=== PATIENT | female | born 1950 | race Caucasian/White ===

== ENCOUNTER → 2016-12-28 | Outpatient (CLI) | payer MEDICARE, OTHER ==
[~2016-12-28] MED LIST: ASPI-586 PO; CELE200C PO; CITA40TA11 PO; GABA600T2 PO; INSU100V31 IJ; INSU100V5 SQ; MELO15TA39 PO; METF1000 PO; MULT1TAB69 PO; ONDN4T PO; OXYC-471 PO; PANT40TA2 PO; PRAV40TA2 PO; ROPI0.25 PO; ROPI5TAB PO; SUCR1TAB36 PO; TOLTA4 PO
== END ==
LOC: PREOP 12:57
PROVIDERS: ATTEND Surgery
DX: Z01.818 Encounter for other preprocedural examination (principal); K21.9 Gastro-esophageal reflux disease without esophagitis; R11.2 Nausea with vomiting, unspecified; R10.9 Unspecified abdominal pain

== ENCOUNTER 2016-12-29 09:17 | Day surgery (SDC) | payer MEDICARE, OTHER ==
[~2016-12-29] VITALS: Ht 160 cm; Wt 85.7 kg
[~2016-12-29 09:17] MED LIST changes: -MELO15TA39 PO; -SUCR1TAB36 PO
[2016-12-29 09:30] VITALS: BP 105/57
[2016-12-29] MEDS ORDERED: LIDOCAINE JELLY 2% (XYLOCAINE) 5 ML TUBE MM PRN (09:45)
[2016-12-29] MEDS ORDERED: NS IV 500 ML 500 ML IV PRN (09:45)
[2016-12-29] MEDS ORDERED: HURRICAINE EXT TUBE (BENZOCAINE) XX PRN (09:45)
[2016-12-29] MEDS ORDERED: MELO15TA39 PO (10:09)
[2016-12-29] MEDS ORDERED: METF1000 PO (10:09)
--- NOTE | 2016-12-29 10:15 | Conscious Sedation/ASA ---
Conscious Sedation Pre-Proced Time Reviewed: 09:45 ASA Class: 2 Airway Mallampati Classification: ([place] appropriate class) I. II. III, IV Lungs Heart ASA score ASA 1: a normal healthy patient ASA 2: a patient with a mild systemic disease (mid diabetes, controlled hypertension, obesity ASA 3: a patient with a severe systemic disease that limits activity (angina , COPD, prior Myocardial infarction) ASA 4: a patient with an incapacitating disease that is a constant threat to life (CHF, renal failure) ASA 5: a moribund patient not expected to survive 24 hrs. (ruptured aneurysm) ASA 6: a declared brain patient whose organs are being harvested. For emergent operations, add the letter E after the classification Grade 3 Sedation Plan: Analgesia, Amnesia, Plan communicated to team members, Discussed options with patient/fam, Discussed risks with patient/fam Note The patient is an appropriate candidate to undergo the planned procedure, sedation, and anesthesia. The patient immediately re-assessed prior to indication. TIFF LAMBERT MD Dec 29, 2016 10:15
--- NOTE | 2016-12-29 10:16 | Progress Note-Pre Operative ---
Pre-Operative Progress Note H&P Reviewed The H&P was reviewed, patient examined and no changes noted. Date Seen by Provider: Dec 29, 2016 Time Seen by Provider: 09:45 Date H&P Reviewed: Dec 29, 2016 Time H&P Reviewed: 09:45 Pre-Operative Diagnosis: nausea, vomiting, GERD TIFF LAMBERT MD Dec 29, 2016 10:16
[2016-12-29] MEDS ORDERED: ONDANSETRON 4 MG/2 ML (SDV) Z0FRAN IV PRN (10:30)
[2016-12-29] MEDS ORDERED: ACETAMINOPHEN 325 MG TABLET/CAPLET (TYLENOL) PO PRN (10:30)
[2016-12-29] MEDS ORDERED: HYDROcodone/APAP 5 MG/325 MG (LORTAB) TAB PO PRN (10:30)
[2016-12-29] MEDS ORDERED: morphine INJ 10 MG/ML 1ML (SYR OR VIAL) IV PRN (10:30)
[2016-12-29] MEDS ORDERED: LIDOCAINE JELLY 2% (XYLOCAINE) 5 ML TUBE ONE (10:50)
[2016-12-29] MEDS ORDERED: HURRICAINE EXT TUBE (BENZOCAINE) ONE (10:51)
[2016-12-29] MEDS ORDERED: fentaNYL INJECTION 100 MCG/2 ML AMP ONE (10:51)
[2016-12-29] MEDS ORDERED: MIDAZOLAM 2 MG/2 ML (VERSED) VIAL ONE ×3 (10:51)
[2016-12-29] MEDS: fentaNYL INJECTION 100 MCG/2 ML AMP IVP PRN ×2 (11:00→11:23)
[2016-12-29] MEDS: MIDAZOLAM 2 MG/2 ML (VERSED) VIAL IVP PRN ×3 (11:22→11:28)
--- NOTE | 2016-12-29 12:12 | Progress Note-Post Operative ---
Post-Operative Progess Note Surgeon (s)/Heat Treater (s) Surgeon TIFF LAMBERT MD Heat Treater: none Pre-Operative Diagnosis nausea, vomiting, GERD Post-Operative Diagnosis reflux esophagitis(class B), moderate-severe gastritis, mild mid-gastric pouch stricture. Procedure & Operative Findings Date of Procedure 12/29/16 Procedure Performed/Findings EGD with bx and dilatation Anesthesia Type CS Estimated Blood Loss Estimated blood loss (mL): minimal Specimens/Packing Specimens Removed antrum, GE jxn TIFF LAMBERT MD Dec 29, 2016 12:12 pm
[2016-12-29] MEDS ORDERED: SUCR1TAB36 PO (12:14)
[2016-12-29] MEDS ORDERED: PANT40TA2 PO (12:14)
--- NOTE | 2016-12-29 12:15 | Discharge Inst-Surgical ---
D/C Lap Instructions-KIDO New, Converted, or Re-Newed RX: RX on Chart Follow Up PRN Activity as tolerated High Fiber Diet 25g or more per day Avoid Alcohol, Caffeine, Spicy [place] and Acid foods. Drink 64 fluid oz or more of fluids per day. Symptoms to Report: Fever over 101 degree F, Nausea/Vomiting If any problems/questions: Contact your physician or go to Emergency Room TIFF LAMBERT MD Dec 29, 2016 12:15 pm
[2016-12-29 12:20] VITALS: BP 116/58
[2016-12-29 12:55] VITALS: BP 119/66
[2016-12-29 13:00] VITALS: BP 119/66
--- NOTE | 2016-12-29 15:49 | OPERATIVE REPORT ---
PROCEDURE PHYSICIAN: TIFF LAMBERT DATE OF PROCEDURE: 12/29/2016 ATTENDING PRIMARY CARE PHYSICIAN: Dr. Sheets. PREOPERATIVE DIAGNOSES: 1. Nausea. 2. Vomiting. 3. Gastroesophageal reflux disease. POSTOPERATIVE DIAGNOSES: 1. Reflux esophagitis, class B. 2. Moderate diffuse gastritis. 3. Mild mid gastric stricture. PROCEDURE: EGD with biopsy and dilatation. SURGEON: Dr. Lambert. ANESTHESIA: Conscious sedation. ESTIMATED BLOOD LOSS: Minimal. FINDINGS: 1. Reflux esophagitis, class B. 2. There was a diffuse gastritis throughout the gastric pouch, most likely secondary to nonsteroidal anti-inflammatories, as well as a stress gastritis. There was also a mild mid gastric pouch stricture. There were no distal obstructions with a widely patent pylorus and duodenum. DISPOSITION: The patient tolerated the procedure well. Ms. Gisela Sibley is a 66-year-old female with a history of morbid obesity, medical comorbidities including diabetes, degenerative joint disease and hyperlipidemia. She is status post laparoscopic gastric sleeve resection on 08/21/2015. She has done well with weight loss; however, has had developed issues with reflux, regurgitation, as well as gastroesophageal reflux disease. She also does report intermittent episodes of epigastric burning sensation as well as crampy pain. She does currently take meloxicam as well as aspirin for degenerative joint disease. She does not report any known hematemesis nor coffee-ground emesis. The patient was brought to endoscopy suite, laid in the left lateral decubitus position. After adequate IV pain and sedative medications and conscious sedation anesthesia, the mouthpiece was applied. The endoscope was placed in the mouth, visualizing the pharynx and hypopharyngeal region. Vocal cords, epiglottis and vallecula identified and appeared to be normal. The endoscope was then gently intubated into the esophageal opening and the esophagus insufflated. The endoscope was then advanced through the first, second, and 3rd portions esophagus. At the level of the GE junction, a reflux esophagitis, class B identified. There were no ulcers or strictures identified in this region. A biopsy was taken with forceps with visualization of good hemostasis. The endoscope was then easily advanced into the stomach visualizing the gastric pouch. There was a moderate to severe diffuse gastritis identified throughout the entirety of the stomach most likely secondary to nonsteroidal anti-inflammatory use, as well as stress gastritis. There were no formal ulcers or neoplasms identified. A mid gastric pouch stricture was also identified. The endoscope was able to pass through the stricture into the pylorus into the first and second portions of the duodenum with no distal obstructions identified. A biopsy was taken of the stomach antrum with forceps with visualization of good hemostasis. It was then decided to proceed with dilatation of the mild stricture using CRE fixed guidewire balloon. This was placed into the antrum and pulled back to the area of stricture. We first proceed to 3 atmospheres of pressure or 18 mm in diameter with no resistance. We then proceeded to 4.5 atmospheres of pressure with no resistance. We then proceeded to 6 atmospheres of pressure or 20 mm in diameter with mild resistance and left this in place for approximately 60 seconds. The balloon was desufflated and removed. There are no mucosal tears or any bleeding identified. The endoscope was then slowly withdrawn while taking a second look and suctioning of residual air with no additional findings. The patient tolerated the procedure well. We will have her proceed with the necessary lifestyle and diet accommodation including continued small frequent meals, as well as a high protein diet with lean meat protein sources and copious amounts of water and avoidance of caffeinated beverages, spicy, greasy and acidic foods. We will also recommend cessation or decreasing the amount of nonsteroidal anti-inflammatories. She also needs to be on a PPI acid customer supply chain analyst on a daily basis, which we will start as well as Carafate 1 gram q.i.d. for the next 2 weeks then on a p.r.n. basis. Job ID: [id number] Dictated Date: 12/29/2016 12:11:18 Litigation Assistant Date: 12/29/2016 15:36:50 / oskar
== END 2016-12-29 13:00 | disposition home or self-care (01) ==
LOC: ENDO 09:17
PROVIDERS: ATTEND Surgery
DX: K21.0 Gastro-esophageal reflux disease with esophagitis (principal); K29.70 Gastritis, unspecified, without bleeding; K22.2 Esophageal obstruction; E11.9 Type 2 diabetes mellitus without complications; M19.90 Unspecified osteoarthritis, unspecified site; F32.9 Major depressive disorder, single episode, unspecified; E78.5 Hyperlipidemia, unspecified; N32.81 Overactive bladder; G25.81 Restless legs syndrome; G62.9 Polyneuropathy, unspecified; Z96.652 Presence of left artificial knee joint; Z96.641 Presence of right artificial hip joint; Z96.642 Presence of left artificial hip joint; Z98.84 Bariatric surgery status; Z79.82 Long term (current) use of aspirin; Z79.899 Other long term (current) drug therapy
CPT/HCPCS: 88305

== ENCOUNTER 2019-12-12 11:34 | Outpatient (RCR) | payer MEDICARE, OTHER ==
[~2019-12-12] VITALS: Ht 160 cm; Wt 104.5 kg
[~2019-12-12 11:34] MED LIST changes: -GABA600T2 PO; +GBPN600T PO; +MELO15TA39 PO; +METF-399 PO; -METF1000 PO; +MULT-567 PO; -MULT1TAB69 PO; -ROPI0.25 PO; +ROPI0.253 PO; -ROPI5TAB PO; +ROPI5TAB3 PO; +SUCR1TAB36 PO
[2019-12-12] MEDS ORDERED: NAPR500T8 PO (12:11)
[2019-12-14] MEDS ORDERED: PANT40TA2 PO (12:30)
== END 2019-12-12 12:20 | disposition home or self-care (01) ==
LOC: PREOP 11:34
PROVIDERS: ATTEND Surgery
DX: Z01.818 Encounter for other preprocedural examination (principal)

== ENCOUNTER 2019-12-14 11:42 | Day surgery (SDC) | payer MEDICARE ==
--- NOTE | 2019-12-13 06:49 | HISTORY AND PHYSICAL ---
DATE OF SERVICE: ADMITTING PRIMARY CARE PHYSICIAN: Dr. Sheets. HISTORY OF PRESENT ILLNESS: The patient is a 69-year-old female known to us. She has a history of morbid obesity and medical comorbidities including diabetes, degenerative joint disease, depression and hyperlipidemia. She is status post laparoscopic gastric sleeve resection on 08/21/2015. She has done well with weight loss; however, she did develop persistent nausea and vomiting and underwent an EGD on 01/17/2017 and found to have a mild mid gastric stricture. She continued to do well with weight loss and her lowest was at 190 pounds and a starting weight of 314 pounds. On today's office visit, she appears well. However, states that she has had recurrent episodes of dysphagia and is only able to take in small amounts of solid foods. Because of this, she circumvents her proper diet with soft foods that do go down more easily and has gained some weight back. She reports worsening episodes of reflux and regurgitation as well, likely consistent with a recurrent stricture. PAST MEDICAL HISTORY: Diabetes, degenerative joint disease, depression, hyperlipidemia, restless leg syndrome and neuropathy. PAST SURGICAL HISTORY: Right total hip replacement 2013, left total knee 2014, total hysterectomy 2005, open cholecystectomy, bilateral carpal tunnel release 2014, laparoscopic gastric sleeve resection 07/2015. ALLERGIES: No known drug allergies. MEDICATIONS: Metformin 1000 mg b.i.d., paroxetine 30 mg daily, Protonix 40 mg daily, potassium 20 mEq daily, furosemide 40 mg daily, gabapentin 600 mg t.i.d., aspirin 81 mg daily, pravastatin 40 mg daily, montelukast 10 mg daily, donepezil 10 mg daily. SOCIAL HISTORY: Negative smoke, negative alcohol. FAMILY HISTORY: Mother, myocardial infarction in her 80s. Father, sister and brother, type 2 diabetes. VITAL SIGNS: Stable. Blood pressure 130/70, current weight 238.2 pounds at 5 feet 30 inches. REVIEW OF SYSTEMS: Well-nourished female currently in no acute distress. She is not experiencing any shortness of breath or difficulty breathing. No chest pain, palpitations or diaphoresis. Intermittent episodes of dysphagia with difficulty swallowing with only very small amounts of solid food as well as reflux and regurgitation. No hematemesis, no coffee ground emesis. No diarrhea or constipation. No red blood per rectum, no dark tarry stools. No fever or chills. No recent inadvertent weight loss. All other review of systems negative. PHYSICAL EXAMINATION: CHEST: Clear. Good breath sounds bilaterally. HEART: Regular, no murmurs. EXTREMITIES: No lower extremity edema, negative Homans sign. HEENT: No scleral icterus. NECK: No cervical lymphadenopathy. ABDOMEN: Soft, nontender, nondistended. All incisions healed well with no hernias. SKIN: Warm, dry. ASSESSMENT AND PLAN: A 69-year-old female with dysphagia likely secondary to gastric stricture, status post gastric sleeve resection. We will proceed with an EGD with biopsy as well as possible balloon dilatation. Job ID: [id number] DocumentID: [id number] Dictated Date: 12/11/2019 15:59:31 Shape Brick Molder Date: 12/11/2019 16:23:45 Dictated By: TIFF LAMBERT MD
[2019-12-14] VITALS (8 sets, daily range): BP systolic 116–182; BP diastolic 55–83
[~2019-12-14] VITALS: Ht 160 cm; Wt 104.5 kg
[~2019-12-14 11:42] MED LIST changes: +NAPR500T8 PO
[2019-12-14] MEDS ORDERED: NS IV 500 ML 500 ML IV PRN (11:55)
[2019-12-14] MEDS ORDERED: NS IV 500 ML 500 ML ONE (11:58)
[2019-12-14] MEDS ORDERED: LIDOCAINE JELLY 2% 6 ML SYRINGE MM PRN (12:00)
[2019-12-14] MEDS ORDERED: fentaNYL INJECTION 100 MCG/2 ML AMP IVP ONE (12:00)
[2019-12-14] MEDS ORDERED: HURRICAINE EXT TUBE (BENZOCAINE) XX PRN (12:00)
[2019-12-14] MEDS ORDERED: LIDOCAINE JELLY 2% 6 ML SYRINGE ONE (12:20)
[2019-12-14] MEDS ORDERED: MIDAZOLAM 5 MG/5 ML (VERSED) VIAL ONE (12:20)
[2019-12-14] MEDS ORDERED: fentaNYL INJECTION 100 MCG/2 ML AMP ONE (12:21)
--- NOTE | 2019-12-14 12:28 | Conscious Sedation/ASA ---
Conscious Sedation Pre-Proced Time 12:20 ASA Score 2 For ASA 3 and 4: Consider anesthesia and medical clearance. Also, for patients with a history of failed moderate sedation consider anesthesia. Airway Lungs Heart ASA score ASA 1: a normal healthy patient ASA 2: a patient with a mild systemic disease (mid diabetes, controlled hypertension, obesity ASA 3: a patient with a severe systemic disease that limits activity (angina, COPD, prior Myocardial infarction) ASA 4: a patient with an incapacitating disease that is a constant threat to life (CHF, renal failure) ASA 5: a moribund patient not expected to survive 24 hrs. (ruptured aneurysm) ASA 6: a declared brain- patient whose organs are being harvested. For emergent operations, add the letter E after the classification Mallampati Classification Grade 2 Sedation Plan Analgesia, Amnesia, Plan communicated to team members, Discussed options with patient/fam, Discussed risks with patient/fam The patient is an appropriate candidate to undergo the planned procedure, sedation, and anesthesia. The patient immediately re-assessed prior to indication. TIFF LAMBERT MD Dec 14, 2019 12:28
--- NOTE | 2019-12-14 12:28 | Progress Note-Pre Operative ---
Pre-Operative Progress Note H&P Reviewed The H&P was reviewed, patient examined and no changes noted. Date Seen by Provider: Dec 14, 2019 Time Seen by Provider: 12:20 Date H&P Reviewed: Dec 14, 2019 Time H&P Reviewed: 12:20 Pre-Operative Diagnosis: dysphagia TIFF LAMBERT MD Dec 14, 2019 12:28
[2019-12-14] MEDS ORDERED: ONDANSETRON 4 MG/2 ML (SDV) Z0FRAN IVP PRN (12:30)
[2019-12-14] MEDS ORDERED: HYDROcodone/APAP 5 MG/325 MG (LORTAB) TAB PO PRN (12:30)
[2019-12-14] MEDS ORDERED: ACETAMINOPHEN 325 MG TABLET PO PRN (12:30)
[2019-12-14] MEDS ORDERED: morphine INJ 10 MG/ML 1ML (SYR OR VIAL) IVP PRN ×2 (12:30)
[2019-12-14] MEDS ORDERED: PANT40TA2 PO (12:30)
--- NOTE | 2019-12-14 12:31 | Discharge Inst-Surgical ---
D/C Lap Instructions-FAUSTO New, Converted, or Re-Newed RX: RX on Chart Follow Up Activity as tolerated High Fiber Diet 25g or more per day Avoid Alcohol, Caffeine, Spicy [place] and Acid foods. Drink 64 fluid oz or more of fluids per day. Symptoms to Report: Fever over 101 degree F, Nausea/Vomiting If any problems/questions: Contact your physician or go to Emergency Room TIFF LAMBERT MD Dec 14, 2019 12:31
[2019-12-14] MEDS: MIDAZOLAM 5 MG/5 ML (VERSED) VIAL IV PRN ×2 (12:35→12:40)
--- NOTE | 2019-12-14 13:05 | Progress Note-Post Operative ---
Post-Operative Progess Note Surgeon (s)/Restaurant Recruiter (s) Surgeon TIFF LAMBERT MD Restaurant Recruiter: none Pre-Operative Diagnosis dysphagia Post-Operative Diagnosis reflux esophagitis(stage 2), no HH, mild mid-distal gastric stricture, antral erosions. Procedure & Operative Findings Date of Procedure 12/14/19 Procedure Performed/Findings EGD with bx and balloon dilatation. Anesthesia Type cs Estimated Blood Loss Estimated blood loss (mL): minimal Specimens/Packing Specimens Removed antrum, ge jxn TIFF LAMBERT MD Dec 14, 2019 13:05
--- NOTE | 2019-12-14 21:15 | OPERATIVE REPORT ---
DATE OF SERVICE: 12/14/2019 ATTENDING PRIMARY CARE PHYSICIAN: Dr. Sheets. PREOPERATIVE DIAGNOSIS: Dysphagia. POSTOPERATIVE DIAGNOSES: Mild distal stomach stricture, status post gastric sleeve resection. PROCEDURE: EGD with biopsy and balloon dilatation. SURGEON: Tiff Lambert MD ANESTHESIA: Conscious sedation. ESTIMATED BLOOD LOSS: Minimal. FINDINGS: Mild distal stomach stricture, status post gastric sleeve resection. DISPOSITION: The patient tolerated the procedure well. INDICATIONS: The patient is a 69-year-old female known to us. She has a history of morbid obesity and medical comorbidities including degenerative joint disease, diabetes, depression and hyperlipidemia. She is status post laparoscopic gastric sleeve resection on 08/21/2015. She has done well with weight loss; however, did develop persistent nausea and vomiting, underwent an EGD on 01/17/2017 and found to have a mild mid to lower gastric stricture and underwent a balloon dilatation. She reports that she has had recurrent dysphagia more recently and is only able to take a small amounts of solid foods . DESCRIPTION OF PROCEDURE: The patient was brought to the endoscopy suite, laid in the left lateral decubitus position. After adequate IV pain and sedative medications and conscious sedation anesthesia, the mouthpiece was applied. The endoscope was placed in the mouth, visualizing the pharynx and hypopharyngeal region. Vocal cords, epiglottis and vallecula identified and appeared to be normal. The endoscope was then gently intubated. Esophageal opening and esophagus insufflated. The endoscope was then advanced to the [facility] through the first, second and third portion of esophagus at the level of GE junction, a reflux esophagitis stage II identified. There were no ulcers or strictures identified in this region. A biopsy was taken with forceps with visualization of good hemostasis. The endoscope was then advanced into the gastric pouch where again a mild mid to distal gastric stricture identified. The endoscope was easily passed well through this region. The endoscope was first retroflexed visualizing no hiatal hernia. The endoscope was then advanced into the pylorus where a few small antral erosions identified consistent with hyperacidemia. The endoscope was then advanced to the pylorus and first and second portion of the duodenum, which appeared normal with no distal obstructions. We then proceeded with biopsy of the antrum as well as the GE junction with forceps with visualization of good hemostasis. We then proceeded with dilatation of the stricture. The balloon was placed into the antrum and pulled back to the area of the stricture. We first proceeded 2 and then 4 atmospheres of pressure. We then proceeded to 6 atmospheres of pressure or 20 mm in luminal diameter with mild to moderate resistance and left this in place for approximately 60 seconds. The balloon was then desufflated and removed with visualization of good hemostasis as well as no mucosal tears. The endoscope was then slowly withdrawn while taking a second look and suctioning of residual air with no additional findings. The patient tolerated the procedure well. We will recommend the necessary lifestyle and diet accommodation including small and more frequent meals, avoidance of eating at night as well as head elevation while lying supine. We will start her on Protonix 40 mg daily. Job ID: [id number] DocumentID: [id number] Dictated Date: 12/14/2019 12:54:47 Spinner Open End Date: 12/14/2019 21:14:08 Dictated By: TIFF LAMBERT MD
== END 2019-12-14 13:20 | disposition home or self-care (01) ==
LOC: ENDO 11:42
PROVIDERS: ATTEND Surgery
DX: K21.0 Gastro-esophageal reflux disease with esophagitis (principal); K25.9 Gastric ulcer, unspecified as acute or chronic, without hemorrhage or perforation; K31.89 Other diseases of stomach and duodenum; E11.40 Type 2 diabetes mellitus with diabetic neuropathy, unspecified; F32.9 Major depressive disorder, single episode, unspecified; G25.81 Restless legs syndrome; M19.90 Unspecified osteoarthritis, unspecified site; E78.5 Hyperlipidemia, unspecified; Z98.84 Bariatric surgery status; Z79.84 Long term (current) use of oral hypoglycemic drugs; Z79.899 Other long term (current) drug therapy; Z79.82 Long term (current) use of aspirin; Z96.641 Presence of right artificial hip joint; Z96.652 Presence of left artificial knee joint
CPT/HCPCS: 82962

== ENCOUNTER 2021-03-04 10:36 | Outpatient (CLI) | payer MEDICARE, OTHER ==
[~2021-03-04] VITALS: Ht 160 cm; Wt 98.0 kg
[~2021-03-04 10:36] MED LIST changes: -OXYC-471 PO; +OXYC1TAB11 PO
[2021-03-04] MEDS ORDERED: DULO30CA49 PO (12:51)
[2021-03-04] MEDS ORDERED: DONE10TA41 PO (12:51)
[2021-03-04] MEDS ORDERED: MONT10TA21 PO (12:51)
[2021-03-04] MEDS ORDERED: POTA20TA15 PO (12:51)
[2021-03-04] MEDS ORDERED: FURO40TA4 PO (12:51)
[2021-03-04] MEDS ORDERED: ALLO300T2 PO (12:51)
== END 2021-03-04 13:24 | disposition home or self-care (01) ==
LOC: PREOP 10:36
PROVIDERS: ATTEND Surgery
DX: Z01.818 Encounter for other preprocedural examination (principal)

== ENCOUNTER 2021-03-06 11:07 | Day surgery (SDC) | payer MEDICARE, OTHER ==
[2021-03-06] VITALS (10 sets, daily range): BP systolic 147–181; BP diastolic 69–84
[~2021-03-06] VITALS: Ht 160 cm; Wt 98.0 kg
[~2021-03-06 11:07] MED LIST changes: +ALLO300T2 PO; +DONE10TA41 PO; +DULO30CA49 PO; +FURO40TA4 PO; +MONT10TA21 PO; +POTA20TA15 PO
[2021-03-06] MEDS ORDERED: NS IV 500 ML 500 ML ONE (11:13)
[2021-03-06] MEDS ORDERED: LIDOCAINE JELLY 2% 6 ML SYRINGE MM PRN (11:30)
[2021-03-06] MEDS ORDERED: MIDAZOLAM 5 MG/5 ML (VERSED) VIAL IV ONE (11:30)
[2021-03-06] MEDS ORDERED: fentaNYL INJ 100 MCG/2 ML AMP IVP ONE (11:30)
[2021-03-06] MEDS ORDERED: HURRICAINE EXT TUBE (BENZOCAINE) XX PRN (11:30)
[2021-03-06] MEDS: NS IV 500 ML 500 ML IV PRN ×2 (11:35→12:25)
[2021-03-06] MEDS ORDERED: ONDANSETRON 4 MG/2 ML (SDV) Z0FRAN IVP PRN (12:30)
[2021-03-06] MEDS ORDERED: ONDANSETRON 4 MG (ZOFRAN) ORAL DISSOLVE TAB PO PRN (12:30)
--- NOTE | 2021-03-06 12:30 | Conscious Sedation/ASA ---
Conscious Sedation Pre-Proced Time 12:00 ASA Score 2 For ASA 3 and 4: Consider anesthesia and medical clearance. Also, for patients with a history of failed moderate sedation consider anesthesia. Airway Lungs Heart ASA score ASA 1: a normal healthy patient ASA 2: a patient with a mild systemic disease (mid diabetes, controlled hypertension, obesity ASA 3: a patient with a severe systemic disease that limits activity (angina, COPD, prior Myocardial infarction) ASA 4: a patient with an incapacitating disease that is a constant threat to life (CHF, renal failure) ASA 5: a moribund patient not expected to survive 24 hrs. (ruptured aneurysm) ASA 6: a declared brain- patient whose organs are being harvested. For emergent operations, add the letter E after the classification Mallampati Classification Grade 2 Sedation Plan Analgesia, Amnesia, Plan communicated to team members, Discussed options with patient/fam, Discussed risks with patient/fam The patient is an appropriate candidate to undergo the planned procedure, sedation, and anesthesia. The patient immediately re-assessed prior to indication. TIFF LAMBERT MD Mar 06, 2021 12:30
--- NOTE | 2021-03-06 12:30 | Progress Note-Pre Operative ---
Pre-Operative Progress Note H&P Reviewed The H&P was reviewed, patient examined and no changes noted. Date Seen by Provider: Mar 06, 2021 Time Seen by Provider: 12:00 Date H&P Reviewed: Mar 06, 2021 Time H&P Reviewed: 12:00 Pre-Operative Diagnosis: TIFF NAVARRO MD Mar 06, 2021 12:30
--- NOTE | 2021-03-06 12:31 | Discharge Inst-Surgical ---
D/C Lap Instructions-FAUSTO Follow Up Activity as tolerated High Fiber Diet 25g or more per day Avoid Alcohol, Caffeine, Spicy [place] and Acid foods. Drink 64 fluid oz or more of fluids per day. Symptoms to Report: Fever over 101 degree F, Nausea/Vomiting If any problems/questions: Contact your physician or go to Emergency Room TIFF LAMBERT MD Mar 06, 2021 12:31
--- NOTE | 2021-03-06 13:50 | Progress Note-Post Operative ---
Post-Operative Progess Note Surgeon (s)/Bell Staff (s) Surgeon TIFF LAMBERT MD Bell Staff: none Pre-Operative Diagnosis GERD Post-Operative Diagnosis reflux esophagitis(stage 2), no HH, mild distal gastric stricture, moderate gastritis. Procedure & Operative Findings Date of Procedure 03/06/21 Procedure Performed/Findings EGD with bx and balloon dilatation. Anesthesia Type cs Estimated Blood Loss Estimated blood loss (mL): minimal Specimens/Packing Specimens Removed ge jxn, antrum TIFF LAMBERT MD Mar 06, 2021 13:50
--- NOTE | 2021-03-06 22:02 | OPERATIVE REPORT ---
DATE OF SERVICE: 03/06/2021 ATTENDING PRIMARY CARE PHYSICIAN: Dr. Darion Sheets. PREOPERATIVE DIAGNOSES: Crampy abdominal pain, dysphagia. POSTOPERATIVE DIAGNOSES: Reflux esophagitis stage II, no significant hiatal hernia, mild distal gastric stricture. Moderate gastritis. PROCEDURE: EGD with biopsy and balloon dilatation. SURGEON: Tiff Lambert MD. ANESTHESIA: Conscious sedation. ESTIMATED BLOOD LOSS: Minimal. FINDINGS: Reflux esophagitis stage II, no significant hiatal hernia, mild distal gastric stricture. Moderate gastritis. DISPOSITION: The patient tolerated the procedure well. INDICATIONS: The patient is a 70-year-old female known to us. She comes to us for issues with epigastric crampy pain usually after eating a meal and also reflux type of symptoms. She also reports dysphagia-like symptoms as well. She underwent a gastric sleeve resection on 08/21/2015 and has done well with weight loss; however, did have persistent issues with dysphagia and she underwent an EGD 01/13/2021, was found to have a lower gastric stricture and underwent a balloon dilatation and another one 12/14/2019. She reports a recurrence of symptoms with epigastric crampy pain after eating meals, especially lean meats. No hematemesis, no coffee ground emesis. DESCRIPTION OF PROCEDURE: The patient was brought to the endoscopy suite, laid in the left lateral decubitus position. After adequate IV pain and sedative medications and conscious sedation anesthesia, the mouthpiece was applied. The endoscope was placed in the mouth, visualizing the pharynx and hypopharyngeal region. Vocal cords, epiglottis and vallecula identified and appeared to be normal. The endoscope was then gently intubated at esophageal opening and esophagus insufflated. The endoscope was then advanced to the first, second and third portion of esophagus at the level of the GE junction, a reflux esophagitis stage II identified. No ulcers or strictures identified in this region. A biopsy was taken with forceps with visualization of good hemostasis. The endoscope was then advanced in the stomach and endoscope retroflexed visualizing no significant hiatal hernia. At the distal stomach, a recurrent mild gastric stricture identified. The endoscope was easily passed through this region and there was a moderate gastritis more towards the stomach antrum. No formal ulcerations, polyps, or any neoplasms. Biopsy was taken of the antrum to rule out H. pylori with visualization of good hemostasis. The endoscope was then advanced to the pylorus and the first and second portion of the duodenum, which appeared normal with no distal obstructions. The balloon was then placed into the distal stomach and pulled back to the area of stricture. We then proceeded in a graded stepwise fashion from 2, 4, then eventually 6 atmospheres of pressure with moderate resistance or 20 mm in luminal diameter and left this in place for 60 seconds. The balloon was then desufflated and removed with visualization of good hemostasis as well as no mucosal tears. The endoscope was then slowly withdrawn while taking a second look and suctioning of residual air with no additional findings. The patient tolerated the procedure well. We will recommend the necessary lifestyle and diet accommodation including small and more frequent meals, avoiding to eating at night as well as head elevation while lying supine. We will also want her to avoid caffeinated beverages, spicy, greasy and acidic foods. We also want her to continue with her PPI acid acquisitions logistics analyst daily. Job ID: [id number] DocumentID: [id number] Dictated Date: 03/06/2021 12:57:52 Medical Lead Date: 03/06/2021 22:00:54 Dictated By: TIFF LAMBERT MD
== END 2021-03-06 13:35 | disposition home or self-care (01) ==
LOC: ENDO 11:07
PROVIDERS: ATTEND Surgery
DX: K21.00 Gastro-esophageal reflux disease with esophagitis, without bleeding (principal); K31.89 Other diseases of stomach and duodenum; K29.50 Unspecified chronic gastritis without bleeding; E11.42 Type 2 diabetes mellitus with diabetic polyneuropathy; F32.A Depression, unspecified; E78.5 Hyperlipidemia, unspecified; M19.90 Unspecified osteoarthritis, unspecified site; Z79.82 Long term (current) use of aspirin; Z79.899 Other long term (current) drug therapy; Z79.84 Long term (current) use of oral hypoglycemic drugs; Z96.641 Presence of right artificial hip joint; Z96.652 Presence of left artificial knee joint; Z98.84 Bariatric surgery status
CPT/HCPCS: 82947